=== PATIENT | male | born 1970 | race Caucasian/White ===

== ENCOUNTER 2017-06-16 18:04 | Observation (INO) | payer OTHER ==
[2017-06-16] MEDS ORDERED: ERTAPENEM 1 GM VIAL IVP ONE (18:20)
[2017-06-16] MEDS ORDERED: LR 1,000 ML IV SCH (18:30)
--- NOTE | 2017-06-16 18:45 | PDGENHP ---
History and Physical - Chief Complaint abdominal pain - History of Present Illness otherwise healthy 47yo M with abdominal pain now since yesterday. Initially attributed the pain to his known umbilical hernia but over the last day the pain has worsened. Works at [employer] [place], had some lab work which was underwhelming, also had a CT scan which shows acute uncomplicated appendicitis. Pain is RLQ, 6/ 10, non-radiating and associated with no other Sx including nausea, vomiting fevers or chills History Information - Allergies/Home Medication List Allergies/Adverse Reactions: No Known Allergies Allergy (Unverified 06/16/17 18:20) I have personally reviewed and updated: family history, medical history, social history, surgical history - Past Medical History no pertinent PMH - Surgical History Additional surgical history: some sinus surgery - Family History Positive for: non-pertinent - Social History Smoking Status: Never smoked Alcohol Use: Occasionally Drug Use: None Additional social history: 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[facility] [place] Review of Systems Review of Systems: ROS: 10pt was reviewed & negative except for what was stated in HPI & below Physical Exam Physical Exam: Temp Pulse Resp BP Pulse Ox 36.9 C 84 19 154/100 H 99 06/16/17 18:35 06/16/17 18:35 06/16/17 18:35 06/16/17 18:35 06/16/17 18:35 Constitutional: no apparent distress, appears nourished, not in pain Eyes: PERRL, anicteric sclera, EOMI Ears, Nose, Mouth, Throat: moist mucous membranes, hearing normal, ears appear normal, no oral mucosal ulcers Cardiovascular: regular rate and rhythym, no murmur, rub, or gallop, No edema Respiratory: no respiratory distress, no rales or rhonchi, clear to auscultation Gastrointestinal: normoactive bowel sounds, other (TTP in the RLQ with rebound, non-reducible umbilical hernia ) Genitourinary: no bladder fullness, no bladder tenderness Skin: warm, normal color, no rashes or abrasions, no fluctuance, no induration, No mottled Musculoskeletal: full muscle strength, no muscle tenderness, normal joint ROM, no joint effusions Psychiatric: interacting appropriately, not anxious, not encephalopathic, thought process linear Lymph, Heme, Immunologic: no cervical LAD, no supraclavicular LAD Lab Data & Imaging Review Visualized and Interpreted imaging results: Yes Interpretation: CT: acute appendicitis, non perforated Assessment & Plan Plan: 47yo M with acute non perforated appendicitis. - plan for abx now, OR as time permits. Discussed the risks, benefits and alternatives. Patient also has small umbilical hernia which I will likely repair at the same time primarily
[2017-06-16] MEDS ORDERED: BUPIVACAINE 0.25% 30 ML SDV ONE (20:42)
[2017-06-16] MEDS ORDERED: fentaNYL 100 MCG/2 ML INJ ONE ×2 (20:44→21:20)
[2017-06-16] MEDS ORDERED: PROPOFOL 200 MG/20 ML VIAL ONE (20:44)
[2017-06-16] MEDS ORDERED: LR 1,000 ML IV ONE (20:47)
--- NOTE | 2017-06-16 20:55 | PDANEPAE ---
ANE History of Present Illness Patient presents for Lap Amalia BEDOLLA Past Medical History - Pulmonary History Hx Oxygen in Use at Home: No Hx Sleep Apnea: No Sleep Apnea Screening Result - Last Documented: Negative - Endocrine History Hx Diabetes: No ANE Review of Systems Review of Systems: - Exercise capacity Exercise capacity: >=4 METS ANE Patient History - Allergies Allergies/Adverse Reactions: No Known Allergies Allergy (Unverified 06/16/17 18:20) - Home Medications Home medications: home medication list seen and reviewed - NPO status NPO Status: no food or drink >8 hours NPO Since - Liquids (Date): 06/16/17 NPO Since - Liquids (Time): 16:30 NPO Since - Solids (Date): 06/16/17 NPO Since - Solids (Time): 12:00 - Anes Hx Anes Hx: no prior problems - Smoking Hx Smoking Status: Never smoked - Alcohol Use Alcohol Use: Occasionally ANE Labs/Vital Signs - Vital Signs Blood Pressure: 129/76 Heart Rate: 73 Respiratory Rate: 18 O2 Sat (%): 98 Height: 179.07 cm Weight: 83.915 kg ANE Physical Exam - Airway Neck exam: FROM Mallampati Score: Class 1 Mouth exam: normal dental/mouth exam - Pulmonary Pulmonary: no respiratory distress - Cardiovascular Cardiovascular: regular rate and rhythym - ASA Status ASA Status: I, II, E ANE Anesthesia Plan Anesthesia Plan: general endotracheal anesthesia (rba discussed)
[2017-06-16] MEDS ORDERED: DEXAMETHASONE 4 MG/ML VIAL ONE (21:20)
[2017-06-16] MEDS ORDERED: ONDANSETRON 4 MG/2 ML VIAL ONE (21:20)
[2017-06-16] MEDS ORDERED: ROCURONIUM 50 MG/5 ML VIAL ONE (21:20)
[2017-06-16] MEDS ORDERED: SUCCINYLCHOLINE CHLORIDE*ANESTHESIA ONLY*200 MG/10 ML SYR IVP ONE (21:20)
[2017-06-16] MEDS ORDERED: LIDOCAINE 2% 100 MG/5 ML SYR ONE (21:20)
[2017-06-16] MEDS ORDERED: OXYCODONE/APAP 5/325 TAB PO PRN (21:54)
[2017-06-16] MEDS ORDERED: NALOXONE HCL 0.4 MG/ML INJ IVP PRN (21:54)
[2017-06-16] MEDS ORDERED: fentaNYL 100 MCG/2 ML INJ IVP PRN (21:54)
[2017-06-16] MEDS ORDERED: LR 500 ML IV PRN (21:54)
[2017-06-16] MEDS ORDERED: HYDROCODONE/APAP 5/325 TAB PO PRN (21:54)
[2017-06-16] MEDS ORDERED: ONDANSETRON 4 MG/2 ML VIAL IVP PRN ×2 (21:54→22:29)
--- NOTE | 2017-06-16 22:13 | POSTANESTH ---
Post Anesthetic Evaluation Cardiovascular Status: Normal, Stable Respiratory Status: Similar to Pre-op Cond. Level of Consciousness/Mental Status: Can Participate in Eval Pain Control: Adequate, Prn Tx Ordered Nausea/Vomiting Control: Adequate, Prn Tx Ordered Complications Possibly Related to Anesthesia: None Noted
[2017-06-16] MEDS ORDERED: HYDROmorphone HCL/NS/PF 0.4 MG/2 ML SYR IVP PRN (22:29)
[2017-06-16] MEDS ORDERED: D5W 1/2 NS W/ 20 KCl/L 1,000 ML IV SCH (22:30)
--- NOTE | 2017-06-16 22:31 | POSTOPPROG ---
Post Op Note Date of Operation: 06/16/17 Surgeon: Parminder Luu Anesthesiologist: Latosha Anesthesia: GET(General Endotracheal) Pre-op Diagnosis: Appendicitis Post-op Diagnosis: same Procedure: Laparoscopic appendectomy, repair umbilical hernia Findings: acute appy, non perforated. 1cm umbilical defect primarily repaired Inf/Abcess present in the surg proc area at time of surgery?: No EBL: Minimal Specimen(s): appendix
[2017-06-17 02:23] VITALS: RESP 16
--- NOTE | 2017-06-17 04:58 | GOP ---
[f rep st] OPERATIVE REPORT DATE OF OPERATION: 06/16/2017 SURGEON: Parminder Luu MD SOLAR CONSULTANT: None. ANESTHESIA: General endotracheal. ANESTHESIOLOGIST: Davey Reina M.D. PREOPERATIVE DIAGNOSIS: 1. Appendicitis. 2. Umbilical hernia. POSTOPERATIVE DIAGNOSIS: 1. Appendicitis. 2. Umbilical hernia. PROCEDURE PERFORMED: 1. Laparoscopic appendectomy. 2. Primary repair of symptomatic umbilical hernia. FINDINGS: Acute indurated nonperforated appendicitis and primary 1 cm umbilical hernia, repaired primarily with 0 PDS. SPECIMENS: Appendix. ESTIMATED BLOOD LOSS: 5 cc. DESCRIPTION OF PROCEDURE: The patient was greeted in the preoperative suite and once again the risks, benefits, and alternatives were discussed. Consent was signed. He was brought to the operative suite and placed on the OR table in the supine position. After all anesthesia machines were on and functioning, a [employer] time-out was performed. After successful induction of general anesthesia, the patient's abdomen was prepped and draped in the typical sterile fashion. I made an infraumbilical curvilinear incision. I carried this down through the subcutaneous tissue and amputated the umbilical stalk. Just deep to this was the hernia sac. I successfully dissected this from the fascial edges. The defect measured approximately 1 cm. Through the fascial defect I placed my 10 mm trocar and successfully achieved pneumoperitoneum to 15 mmHg, which was well tolerated by the patient. I then inserted 2 additional 5 mm trocars, 1 in the suprapubic and 1 in the left lower quadrant. I identified the appendix by tracing the taeniae inferiorly. The appendix was indurated, but not acutely grossly perforated. I successfully took down the mesoappendix, using the Harmonic scalpel, down to the base of the appendix. Once successfully at the base, I amputated the appendix using a single fire of the Endo-KANDI blue load stapler. After amputation, I placed it into an EndoCatch bag and removed it. I irrigated the right lower quadrant, as well as the right upper quadrant, with normal saline, noting clear effluent in the suction canister. I inspected my staple line, which was intact and hemostatic. I inspected the mesentery, which was the same. I then instilled local anesthetic into all port sites under direct visualization and removed my trocars and desufflated. After desufflation I grabbed the fascial edge, after it was cleansed appropriately with the cochlear on either side. I commenced placing multiple interrupted 0 PDS sutures in a continuous fashion. Once this was done, I removed the trocars and tied the sutures down, noting excellent fascial reapproximation with minimal tension. I instilled more local anesthesia after my repair. I reapproximated the umbilical stalk using an interrupted 3-0 Vicryl suture and closed all incision sites with running 4-0 Monocryl, over which Dermabond was placed. The patient was then extubated in the operative suite and taken to the PACU in satisfactory condition. DRAINS: None. COUNTS: All counts were reported as correct x2. /[id number]/MODL MTDD
[2017-06-17 06:01] VITALS: BP 123/68; PULSE 77; TEMP 97.8; O2SAT 93
== END 2017-06-17 10:00 | disposition home or self-care (01) ==
LOC: FOB 18:08
PROVIDERS: ADMIT Surgery; ATTEND Surgery
PROC: 0DTJ4ZZ Resection of Appendix, Percutaneous Endoscopic Approach (ICD-10-PCS; principal; 2017-06-16 21:00)
PROC: 0WQF4ZZ Repair Abdominal Wall, Percutaneous Endoscopic Approach (ICD-10-PCS; principal; 2017-06-16 21:00)
DX: K35.80 Unspecified acute appendicitis (principal); K42.9 Umbilical hernia without obstruction or gangrene
CPT/HCPCS: 44970; 49652; G0378; J0330; J1100; J1335; J2001; J2405; J2704; J3010

== ENCOUNTER → 2017-06-16 | Outpatient (CLI) | payer OTHER ==
[~2017-06-16] MED LIST: IOPAMIDOL (ISOVUE-300) 100 ML BTL ONE
== END ==
LOC: FIMAGING 14:48
PROVIDERS: ATTEND Internal Medicine
DX: K35.80 Unspecified acute appendicitis (principal)
CPT/HCPCS: Q9967